=== PATIENT | male | born 2005 | race Caucasian/White ===

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

== ENCOUNTER 2023-03-04 09:51 | Emergency (ER) | payer MEDICAID, SELFPAY ==
[2023-03-04 09:51] VITALS: BP 123/77; PULSE 102; RESP 16; TEMP 36.3; O2SAT 99; BMI 22.8
--- NOTE | 2023-03-04 10:48 | EX.ED.GENINJ ---
HPI History of Present Illness Chief Complaint: Laceration Informant: patient Onset/Context/Timing Onset: Today Narrative Narrative: Patient presents with a laceration to his right hand. He is left-hand dominant. He was using his knife and slipped cutting his right hand. He believes his last tetanus shot was 2 years ago. PFSH PFSH no medical history Allergy/AdvReac Type Severity Reaction Status Date / Time No Known Allergies Allergy Verified 07/28/22 13:23 Social History Smoking Status: Never smoker ROS ROS ED Constitutional Constitutional ED: Denies chills or fever(s) Eyes Eyes: Denies discharge from eye(s) ENT ENT ED: Denies discharge from eye(s), rhinorrhea or sore throat Cardiovascular Cardiovascular: Denies chest pain Respiratory/Chest Respiratory/Chest: Denies cough or dyspnea Gastrointestinal Gastrointestinal: Denies abdominal pain Musculoskeletal Musculoskeletal: Reports extremity pain; Denies back pain Integumentary Reports other Details: Right hand laceration ; Denies Abrasions or rash Neurologic Neurologic: Denies headache(s), paresthesias or weakness Allergic/Immunologic Allergic/Immunologic ED: Denies lip swelling or urticaria EXAM Physical Exam Const Vital Signs: 03/04/23 09:51 Temperature 97.4 F L Temperature Source Temporal Pulse Rate 102 H Respiratory Rate 16 Blood Pressure 123/77 H Blood Pressure Mean 92 Pulse Ox 99 Oxygen Delivery Method Room Air Positive well nourished and well developed General Appearance ED: well developed Eyes EOMs intact bilaterally Chest Wall inspection of chest normal and palpation of chest normal Resp normal respiratory effort and clear to auscultation bilaterally Cardio regular rhythm Rate: regular rate GI non-tender Palpation: soft Extremity Extremity Narrative: 1.5 cm laceration over the second MCP joint on the extensor surface. Bleeding well-controlled. Full range of motion of the digit without difficulty. Normal sensation and cap refill. Neuro oriented x3 and moves all extremities Skin Skin Narrative: Right hand laceration as noted above. PROC Procedures Lacerations Right hand laceration: Length: 0.59 in Shape: Linear Prep: Suzy-Kristin Laceration repair: Irrigated, Lidocaine and Local Number of Sutures/[place]: 3 Suture Information: Ethilon, Simple and 5-0 Comment: 1.5 cm laceration on the extensor surface of the second MCP joint of the right hand. 1 mL lidocaine infused locally for anesthesia. Wound cleansed and irrigated. 3 simple interrupted sutures of 5-0 nylon placed with good approximation. MDM MDM MDM Narrative Medical decision making narrative: Right hand laceration repaired as noted in procedure note. Antibiotic ointment and dressing applied. Patient to have sutures removed in 7 to 10 days. Discharge Plan Triage Chief Complaint: Laceration ED Provider: Caron Monsivais Dx/Rx/DC Orders Clinical Impression: Laceration of hand, right Instructions: ED Laceration, Hand: All Closures Primary Care Provider: Care Physician,No Primary Referrals: Jenny Fields MD [Med Staff - Information Technology Director] - 10 Day for suture removal Care Physician,No Primary [Primary Care Provider] - Activity Restrictions/Additional Instructions: Please keep the wound clean, dry, covered. You may return to work. Please have your stitches removed in 7 to 10 days. Disposition Disposition: Home, Self Care
[2023-03-04] MEDS: Lidocaine 1% (20 ml mdv) 20 ML Vial INFILT (11:20)
--- OUTSIDE RECORDS SUMMARY | 2023-03-04 11:32 | XMS RPT_ITS | CCD ---
Author Name Unknown Address [address] [place] [id number] Organization [facility] Results Test Name Value Interpretation Reference Range Facil ity Progress note 05-03-2021 Note Date & Type Note Facility 05-03-2021 Note HNO ID: [id number] Author: RT Antony(R) Service: ? Author Type: Dress Fitter Type: Progress Notes Filed: 05/03/2021 6:42 PM Note Text: Radiology Service Progress Note PATIENT NAME: Davey Wong DATE OF SERVICE: May 03, 2021 TIME: 6:33 PM PATIENT IDENTITY VERIFICATION COMPLETED USING TWO (2) IDENTIFIERS: Name and Date of confirmed by patient verbally. FALL SCREENING: Has the patient had 2 falls in the last year or 1 fall with injury or currently using an Ambulatory Assistive Device (Walker, Cane, Wheelchair, Crutches, etc.)? No PATIENT GENDER DATA: Male PATIENT RELEVANT IMPLANT DATA REVIEWED: Yes RADIOLOGY DEPARTMENT: General X-ray: Exam(s) Completed: Lower Extremity X-Ray(s): Ankle, Right PERIPHERAL IV DATA: Not applicable SIGNED BY: RT Antony(R) May 03, 2021 6:33 PM [facility] Progress note 05-03-2021 Note Date & Type Note Facility 05-03-2021 Note HNO ID: [id number] Author: Alyssa Villanueva APRN.EDGAR Service: ? Author Type: Nurse Practitioner Type: Progress Notes Filed: 05/03/2021 7:57 PM Note Text: This note was created using NoteWriter. Subjective Davey Wong is a 16 year old male who presents with persistent right ankle pain and swelling after twisting his ankle during a wrestling match 2 weeks ago. Additionally he reports some numbness on the dorsal aspect of the right foot, with radiculopathy upon plantar flexion. Rest and tylenol provide mild relief of symptoms. Review of Systems Constitutional: Negative for fatigue and fever. Musculoskeletal: Positive for gait problem (limping) and joint swelling. Skin: Negative for color change. All other systems reviewed and are negative. Objective BP 124/68 Pulse 90 Temp 36.9 ?C (98.5 ?F) Resp 16 Wt 56.7 kg (125 lb) SpO2 99% PAST MEDICAL HISTORY Diagnosis Date - ADD (attention deficit disorder) without hyperactivity 12/12/2012 - Depression 01/08/2014 - Recurrent otitis media prior to age 1 resolved with tubes PAST SURGICAL HISTORY Procedure Laterality Date - CIRCUMCISION,OTHR, - MYRINGOTOMY W TUBE,BILATERAL(2) age 1 ALLERGIES Ibuprofen MEDICATIONS No prescriptions on file. FAMILY HISTORY Problem Relation Age of Onset - other (schizophrenia) Mother per step-mother's report - other (lupus) Mother per step-mother's report - other (bipolar) Mother per step-mother's report - other (migraines) Father occipital neuralgia Social History Tobacco Use - Smoking status: Passive Smoke Exposure - Never Smoker - Smokeless tobacco: Never Used - Tobacco comment: father smokes outside Substance Use Topics - Alcohol use: Not on file - Drug use: Not on file Physical Exam Vitals reviewed. Constitutional: General: He is not in acute distress. HENT: Head: Normocephalic and atraumatic. Musculoskeletal: General: Swelling, tenderness and signs of injury present. No deformity. Right ankle: Swelling present. No ecchymosis. Tenderness present over the lateral malleolus. Decreased range of motion. Normal pulse. Right Achilles Tendon: Tenderness present. Left ankle: Normal. Left Achilles Tendon: Normal. Right foot: Normal. Left foot: Normal. Comments: Effusion noted on right lateral malleolus Skin: General: Skin is warm and dry. Neurological: General: No focal deficit present. Mental Status: He is alert and oriented to person, place, and time. Mental status is at baseline. Psychiatric: Mood and Affect: Mood normal. Behavior: Behavior normal. Assessment and Plan ASSESSMENT/PLAN: 1. Ankle injury, right, initial encounter - ICD9: 959.7, ICD10: S99.911A - XR ANKLE GENERAL 3V AP/LAT/OBL RIGHT - Radiologist IMPRESSION: 1. Soft tissue swelling laterally. No fracture. Normal bone alignment. 2. Possible joint effusion in the anterior ankle joint. ? Steel Erecting Pusher: GABY Transcribe Date/Time: May 03 2021 7:04P ? Dictated by : MARIAM SILVA MD -aircast splint applied to right ankle. - RICE therapy as directed. - Follow-up with your PCP in 3-5 days if symptoms have not improved or sooner if symptoms worsen - Discussed red flags and need for immediate medical evaluation if any occur. - Discussed supportive care treatment with fluids, rest and analgesia. - Discussed expected course of illness Alyssa Villanueva APRN.PROPERTY INSURANCE AGENT [facility] Progress note 12-29-2020 Note Date & Type Note Facility 12-29-2020 Note HNO ID: [id number] Author: Alyssa Villanueva APRN.PROPERTY INSURANCE AGENT Service: ? Author Type: Nurse Practitioner Type: Progress Notes Filed: 12/29/2020 6:51 PM Note Text: Subjective HPI Davey Wong is a 15 year old male who presents for sports physical. See scanned [employer] physical form. Review of Systems Constitutional: Negative. HENT: Negative. Eyes: Negative. Respiratory: Negative. Cardiovascular: Negative. Gastrointestinal: Negative. Genitourinary: Negative. Musculoskeletal: Negative. Skin: Negative. Neurological: Negative. Endo/Heme/Allergies: Negative. Psychiatric/Behavioral: Negative. All other systems reviewed and are negative. BP 102/70 Pulse 96 Temp 36.4 ?C (97.5 ?F) (Left Tympanic) Resp 16 Ht 165.1 cm (5' 5 ) Wt 53.3 kg (117 lb 9.6 oz) SpO2 98% BMI 19.57 kg/m? PAST MEDICAL HISTORY Diagnosis Date - ADD (attention deficit disorder) without hyperactivity 12/12/2012 - Depression 01/08/2014 - Recurrent otitis media prior to age 1 resolved with tubes PAST SURGICAL HISTORY Procedure Laterality Date - CIRCUMCISION,OTHR, - MYRINGOTOMY W TUBE,BILATERAL(2) age 1 ALLERGIES Ibuprofen MEDICATIONS No prescriptions on file. FAMILY HISTORY Problem Relation Age of Onset - other (schizophrenia) Mother per step-mother's report - other (lupus) Mother per step-mother's report - other (bipolar) Mother per step-mother's report - other (migraines) Father occipital neuralgia Social History Tobacco Use - Smoking status: Passive Smoke Exposure - Never Smoker - Smokeless tobacco: Never Used - Tobacco comment: father smokes outside Substance Use Topics - Alcohol use: Not on file - Drug use: Not on file Objective Physical Exam- See scanned [employer] physical form. ASSESSMENT/PLAN: 1. Sports physical - ICD9: V70.3, ICD10: Z02.5 -cleared for all sports without restriction. Alyssa Villanueva APRN.[facility] Progress note 12-08-2020 Note Date & Type Note Facility 12-08-2020 Note HNO ID: [id number] Author: Elizabeth Kaplan MD Service: ? Author Type: Physician Type: Progress Notes Filed: 12/09/2020 4:43 PM Note Text: This is a consultation requested by Dr. Tran for an allergy and immunology evaluation. My final recommendations will be communicated back to the requesting healthcare provider(s) by way of shared medical record or via [place] mail. Davey Wong is a 15 year old male who presents for further evaluation of facial swelling. In late October, he developed significant swelling of the right side of his face. Swelling extended from his lower eyelid to his upper lip. Swelling was painful. Denies pruritus. Denies overlying erythema or skin rash. Denies swelling of the tongue or throat. He had taken ibuprofen for a headache a few hours prior to the onset of symptoms. No other identified triggers of his symptoms. He then took Aleve a couple times after the swelling had developed. He has subsequently avoided use of aspirin/NSAID medications. He was treated with oral corticosteroids and Zyrtec with gradual resolution of symptoms over 1.5 to 2 weeks. Denies a history of urticaria. Denies concurrent symptoms including fevers, chills, night sweats and unintentional weight loss. There is no family history of angioedema or thyroid disease. His biological mother may have a history of lupus. Clemons's palsy was considered in the differential diagnosis when swelling was present. Patient was able to close his eyes without difficulty when symptoms were present. He reports it was difficult to smile due to swelling of the right side of the upper lip. REVIEW OF SYSTEMS: Denies significant nasal and ocular symptoms. SINUSITIS: The patient does not suffer from frequent sinopulmonary infections. ASTHMA: The patient has no history of asthma. ECZEMA: The patient has no history of eczema. URTICARIA:The patient does not have a history of urticaria GERD: The patient does not have a history of GERD. INSECT STING: The patient does not have a history of systemic reaction to insect sting. FOOD ALLERGY:The patient denies history of food allergy. LATEX: The patient does not have a history of adverse reaction to latex. All other review of systems negative except for those listed above. PAST MEDICAL HISTORY Diagnosis Date - ADD (attention deficit disorder) without hyperactivity 12/12/2012 - Depression 01/08/2014 - Recurrent otitis media prior to age 1 resolved with tubes MEDICATIONS: No prescriptions on file. ALLERGIES: Allergies As of Date: 12/08/2020 (No Known Allergies) Fully Assessed 12/08/2020 PAST SURGICAL HISTORY Procedure Laterality Date - CIRCUMCISION,OTHR, - MYRINGOTOMY W TUBE,BILATERAL(2) age 1 FAMILY HISTORY: Allergic rhinitis:yes: dad. Asthma: no. Eczema: no. Cystic fibrosis: no. Immunodeficiency: no. SOCIAL HISTORY: Employer And Job Title: None on file Years Of Education Completed: Not specified Marital Status: Single Social History Tobacco Use Smoking status: Passive Smoke Exposure - Never Smoker Smokeless tobacco: Never Used Tobacco comment: father smokes outside [facility] ENVIRONMENTAL HISTORY: Lives in a house Age of home: 30 years Heating: gas , electric Woodburning fireplace in the home: no Air conditioning: Central air Basement: Dry basement [place]: Hardwood floor Dust mite controls: Dust mite controls are not in place. Pets in the home: 1 cats Outdoor animals: 1 dogs Tobacco smoke: No exposure in the home. Physical Exam: GENERAL APPEARANCE:Well appearing, alert, in no acute distress, well-hydrated, well nourished. HEENT: NCAT. EYES: conjunctiva and sclera normal. EARS: External ears normal. Canals clear. TM's normal. NOSE/SINUS: Nares normal. Septum midline. Mucosa normal. No drainage or sinus tenderness. THROAT: no erythema NECK:neck supple, no adenopathy HEART:RRR with normal S1 and S2 ,no murmurs, no gallops, no rubs LUNGS: clear to auscultation bilaterally, no wheezes, rales or rhonchi ABDOMEN:soft, nontender, nondistended, without organomegaly or palpable masses EXTREMITIES:Extremities normal, No deformities, No skin discoloration and No edema SKIN: Skin color, texture, turgor normal. No rashes or lesions. ASSESSMENT/PLAN: 1.) History of right-sided facial swelling, possibly angioedema, although angioedema typically resolves in 48 to 72 hours rather than 1.5 to 2 weeks. Recommend that he continue to avoid use of ibuprofen and other NSAID medications as ibuprofen was a possible trigger of his symptoms. He may take regular strength Tylenol as needed. He may return to the office for a graded in office challenge to ibuprofen. Laboratory evaluation including CBC with differential and platelets, ESR, TSH, LFTs and C4 will be obtained to screen for underlying etiology of his symptoms. If swelling recurs, he was instructed to take Zyrtec 10 mg twice d (more content not included)... [facility] Progress note 11-15-2020 Note Date & Type Note Facility 11-15-2020 Note HNO ID: [id number] Author: Deepak Tran MD Service: ? Author Type: Physician Type: Progress Notes Filed: 11/15/2020 8:04 PM Note Text: The patient was seen for the issues discussed below. Problem list and history reviewed. Allergies reviewed. Medications reviewed. Immunizations reviewed. HISTORY: see history section below PHYSICAL EXAM: GENERAL: alert, well appearing, in no distress. Visualization of the face reveals slight drooping of the right side of the mouth as well as smoothness over the right facial cheek. Slight edema over the right lower eyelid. LEFT EYE: no drainage noted, no conjunctival injection noted; RIGHT EYE: no drainage noted, no conjunctival injection noted; NO ADDITIONAL EYE FINDINGS LEFT EAR: pinna normal, auditory canal normal, tympanic membrane clear, no effusion noted, RIGHT EAR: pinna normal, auditory canal normal, tympanic membrane clear, no effusion noted NOSE/SINUSES: nares normal, mucosa normal, no drainage noted OROPHARYNX: lips without lesions noted, gums/mucosa normal, oropharynx without erythema or exudates NECK/ADENOPATHY: neck supple, no adenopathy noted CHEST/LUNGS: lungs clear to auscultation GENERAL RECOMMENDATIONS: - Issues discussed in detail. - Symptom relief measures as needed. - Prescriptions, if ordered, are listed below. - Labs and/or X-rays, if ordered or obtained, are listed below. If the final results are not available at the conclusion of this visit, then additional recommendations may be made based on the final results. Note that all x-rays are reviewed by a radiologist before being considered final. - EKG, if ordered or obtained, is reviewed by a professional benefits sales consultant before being considered final. Additional recommendations may be made based on the final results. - Return to clinic should current symptoms (if present) worsen, other problems develop, or as needed. ADDITIONAL AND DICTATED PORTION: ADDITIONAL HISTORY The following Nursing History was reviewed with the family: Patient presents with: Follow Up: Follow facial swelling. The patient has had swelling of the right side of the face for 4 to 5 days. Significantly worse in the mornings. Mostly gone by evening. Drooping of the right facial cheek also has been present. The patient was seen in urgent care on 11/11 and prescribed Zyrtec and prednisolone. He has also now developed a small amount of pain along the right nostril. The patient had photographs that I reviewed. They were from just awakening in the morning. Significant edema present both to the lower eyelid, cheek, and lips of the right side of the face. No history of insect stings. No injuries. No fever. Right eye is watery when the swelling is present. No visual changes. No conjunctival injection. No ear, nose, throat complaints. No lymphadenopathy. No bleeding or bruising. No cough, wheezing, shortness of breath. No vomiting, diarrhea, abdominal pain. No rash. No history of recent illnesses. ACTIVE PROBLEM LIST Add (Attention Deficit Disorder) Without Hyperactivity Depression Parasomnia Aniceto (Generalized Anxiety Disorder) Nightmares Associated With Chronic Post-Traumatic Stress Disorder PAST MEDICAL HISTORY Diagnosis Date - ADD (attention deficit disorder) without hyperactivity 12/12/2012 - Depression 01/08/2014 - Recurrent otitis media prior to age 1 resolved with tubes PAST SURGICAL HISTORY Procedure Laterality Date - CIRCUMCISION,OTHR, - MYRINGOTOMY W TUBE,BILATERAL(2) age 1 ADDITIONAL EXAM / OTHER INFORMATION none ADDITIONAL IMPRESSION / PLAN On the exam in the office this evening, 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 On the photographs from the mornings, the facial swelling is dramatic and consistent with angioedema. I am not aware of Clemons's palsy giving facial edema. The patient and I discussed it is possible that if he lays with the right side (affected side) down, then possibly that side of the face becomes swollen due to the lack of muscle innervation to keep fluid from building up in that location. However, that is a hypothetical explanation that I have not seen in practice with known Clemons's palsy patients. Therefore we will refer the patient to allergy for the possibility of angioedema, and I have extended the steroid course for the possibility of Clemons's palsy. Recommended telephone follow-up from the patient/family in 1 to 2 weeks. I spent a total of 40-54 minutes on the date of service. This included preparing to see the patient; [id number] patient care; obtaining and/or reviewing separately obtained history; performing a medically appropriate examination; counseling and educating the patient/family/caregiver; and completing clinical documentation. As applicable, this also included orderin (more content not included)... [facility] Progress note 11-11-2020 Note Date & Type Note Facility 11-11-2020 Note HNO ID: [id number] Author: Leonor Springer PA-C Service: ? Author Type: Physician Cafe Server Type: Progress Notes Filed: 11/12/2020 4:03 PM Note Text: Subjective HPI HPI Davey Wong is a 15 year old male who presents today with father for evaluation of right-sided facial swelling that started x2-3 days ago, that seemed to come on spontaneously. No itching or rash overlying the area. Denies ever having had this issue before. Denies any injury to the area. No new medications, new topical creams, or any other new exposures. Denies any significant rash or itching in area, as well as any swelling of tongue/lips/throat, SOB/wheezing, or any other progressive symptoms suggestive of more severe anaphylactic response. He does note having headaches but states that is nothing new, just slightly more prevalent given swelling in affected area. Pt has tried benadryl, IBU, and advil, without much relief in symptoms. BP 118/78 Pulse 100 Temp 36.9 ?C (98.5 ?F) Resp 18 Wt 53.1 kg (117 lb) SpO2 99% ALLERGIES No Known Allergies ACTIVE PROBLEM LIST Add (Attention Deficit Disorder) Without Hyperactivity Depression Parasomnia Aniceto (Generalized Anxiety Disorder) Nightmares Associated With Chronic Post-Traumatic Stress Disorder Family History Problem Relation Age of Onset - other (schizophrenia) Mother per step-mother's report - other (lupus) Mother per step-mother's report - other (bipolar) Mother per step-mother's report - other (migraines) Father occipital neuralgia Social History Tobacco Use - Smoking status: Passive Smoke Exposure - Never Smoker - Smokeless tobacco: Never Used - Tobacco comment: father smokes outside Substance Use Topics - Alcohol use: Not on file - Drug use: Not on file Review of Systems Constitutional: Negative for chills and fever. Respiratory: Negative for cough, shortness of breath, wheezing and stridor. Skin: Negative for itching and rash. Objective Physical Exam Vitals and nursing note reviewed. HENT: Head: Normocephalic and atraumatic. Comments: Moderate edema noted in R nasolabial fold extending over to midcheek. No overlying erythema, rash, or any other significant findings. Notable allergic shiner on ipsilateral side (R) Right Ear: Tympanic membrane, ear canal and external ear normal. No middle ear effusion. Tympanic membrane is not injected, perforated, erythematous, retracted or bulging. Left Ear: Tympanic membrane, ear canal and external ear normal. No middle ear effusion. Tympanic membrane is not injected, perforated, erythematous, retracted or bulging. Nose: No mucosal edema or rhinorrhea. Right Sinus: No maxillary sinus tenderness or frontal sinus tenderness. Left Sinus: No maxillary sinus tenderness or frontal sinus tenderness. Mouth/Throat: Pharynx: Uvula midline. No oropharyngeal exudate or posterior oropharyngeal erythema. Tonsils: No tonsillar abscesses. Cardiovascular: Rate and Rhythm: Normal rate and regular rhythm. Heart sounds: Normal heart sounds. Pulmonary: Effort: Pulmonary effort is normal. Breath sounds: Normal breath sounds. No decreased breath sounds, wheezing, rhonchi or rales. Musculoskeletal: Cervical back: Normal range of motion. Lymphadenopathy: Head: Right side of head: No submental, submandibular, tonsillar, preauricular, posterior auricular or occipital adenopathy. Left side of head: No submental, submandibular, tonsillar, preauricular, posterior auricular or occipital adenopathy. Cervical: No cervical adenopathy. Right cervical: No superficial or posterior cervical adenopathy. Left cervical: No superficial or posterior cervical adenopathy. Skin: General: Skin is warm and dry. Neurological: Mental Status: He is alert and oriented to person, place, and time. Psychiatric: Mood and Affect: Affect normal. ASSESSMENT/PLAN: 1. Facial swelling - ICD9: 784.2, ICD10: R22.0 Unclear etiology, suspect allergic versus irritant/hypersensitivity response D/t persistence of symptoms with benadryl, will go ahead and start on oral steroid (pt prefers oral solution), in addition to taking a daily antihistamine. Discussed medication indications, proper use, and potential adverse effects. All questions and concerns addressed to patient satisfaction. - CETIRIZINE 10 MG TABLET - PREDNISOLONE SODIUM PHOSPHATE 15 MG/5 ML (3 MG/ML) ORAL SOLUTION Pt advised to see hockey instructor if symptoms persist or progress. Reviewed red flags with patient and parent and when to seek care sooner. The patient's parent indicates understanding of these issues and agrees with the plan. Leonor Springer PA-C [facility] Progress note 06-30-2020 Note Date & Type Note Facility 06-30-2020 Note HNO ID: [id number] Author: Alyssa Villanueva APRN.PROPERTY INSURANCE AGENT Service: ? Author Type: Nurse Practitioner Type: Progress Notes Filed: 06/30/2020 5:32 PM Note Text: Subjective HPI Davey Wong is a 15 year old male who presents with a recent exposure to COVID. He was in the same room yesterday with a person who tested positive. He denies any symptoms. Review of Systems Constitutional: Negative for chills, fever and malaise/fatigue. HENT: Negative for congestion and sore throat. Respiratory: Negative for cough. Cardiovascular: Negative. Gastrointestinal: Negative for diarrhea, nausea and vomiting. Musculoskeletal: Negative for myalgias. Skin: Negative. Neurological: Negative for headaches. BP 112/82 Pulse 82 Temp 36.7 ?C (98 ?F) (Left Tympanic) Resp 16 Wt 53.2 kg (117 lb 3.2 oz) SpO2 98% PAST MEDICAL HISTORY Diagnosis Date - ADD (attention deficit disorder) without hyperactivity 12/12/2012 - Depression 01/08/2014 - Recurrent otitis media prior to age 1 resolved with tubes PAST SURGICAL HISTORY Procedure Laterality Date - CIRCUMCISION,OTHR, - MYRINGOTOMY W TUBE,BILATERAL(2) age 1 ALLERGIES Patient has no known allergies. MEDICATIONS No prescriptions on file. FAMILY HISTORY Problem Relation Age of Onset - other (schizophrenia) Mother per step-mother's report - other (lupus) Mother per step-mother's report - other (bipolar) Mother per step-mother's report - other (migraines) Father occipital neuralgia Social History Tobacco Use - Smoking status: Passive Smoke Exposure - Never Smoker - Smokeless tobacco: Never Used - Tobacco comment: father smokes outside Substance Use Topics - Alcohol use: Not on file - Drug use: Not on file Objective Physical Exam Vitals reviewed. Constitutional: Appearance: Normal appearance. Cardiovascular: Rate and Rhythm: Normal rate. Heart sounds: Normal heart sounds. Pulmonary: Effort: Pulmonary effort is normal. Breath sounds: Normal breath sounds. Skin: General: Skin is warm and dry. Neurological: Mental Status: He is alert. ASSESSMENT/PLAN: 1. Close exposure to COVID-19 virus - ICD9: V01.79, ICD10: Z20.822 - ASYMPTOMATIC ELECTIVE COVID-19 - information regarding quarantine discussed with patient. - Follow-up with your PCP in 3-5 days if symptoms have not improved or sooner if symptoms worsen - Discussed red flags and need for immediate medical evaluation if any occur. - Discussed supportive care treatment with fluids, rest and analgesia. - Discussed expected course of illness Alyssa Villanueva, KOURTNEY.EDGAR [facility] Summary Purpose Family History No Family History Records FoundNo Family History Records Found Advance Directives No Advanced Directives Records FoundNo Advanced Directives Records Found Additional Source Comments (unrecognized sect ion and content) No Status Records FoundNo Status Records Found INFORMATION SOURCE (unrecogn ized section and content) DATE CREATED AUTHOR AUTHOR'S ORGANIZ ATION 05/16/2021 [facility] FOR RECORDS PERTAINING TO PATIENTS WHO ARE OR HAVE BEEN ENROLLED IN A CHEMICAL DEPENDENCY/SUBSTANCEABUSE PROGRAM, SOME INFORMATION MAY BE OMITTED. This clinical summary was aggregated from multiple sources. Caution should be exercised in using it in the provision of clinical care. This summary normalizes information from multiple sources, and as a consequence, information in this document may materially change the coding, format and clinical context of patient data. In addition, data may be omitted in some cases. CLINICAL DECISIONS SHOULD BE BASED ON THE PRIMARY CLINICAL RECORDS. [facility] [employer] [facility]. provides no warranty or guarantee of the accuracy or completeness of information in this document.
== END 2023-03-04 11:23 | disposition home or self-care (01) ==
LOC: ED 11:01
PROVIDERS: Emergency Provider Emergency Medicine; Visit Provider Emergency Medicine
DX: S61.411A Laceration without foreign body of right hand, initial encounter (principal); W26.0XXA Contact with knife, initial encounter
CPT/HCPCS: 12001; 99283

== ENCOUNTER 2023-10-11 05:22 | Emergency (ER) | payer SELFPAY ==
[2023-10-11 05:23] VITALS: BP 126/79; PULSE 76; RESP 16; TEMP 36.4; O2SAT 97; BMI 20.3
--- NOTE | 2023-10-11 05:57 | EX.ED.DYSGE1 ---
HPI History of Present Illness Chief Complaint: Nausea/Vomiting Informant: patient and spouse/S.O. Narrative Narrative: 18-year-old male presenting to the emergency room with left flank pain and vomiting. Patient states that around midnight last night he had to get up pinching pain in the left low back. He states that he has had 3 distinct episodes of vomiting. Pain seems to come and then back off. He notes some urinary frequency yesterday. He states his father had kidney stones. He denies any change in bowel habits. No fevers. Significant other is not ill. PFSH PFSH Medical History no medical history Home Medications ?Medication ?Instructions ?Recorded ?Last Taken ?Type NK 10/11/23 Unknown History Allergy/AdvReac Type Severity Reaction Status Date / Time No Known Allergies Allergy Verified 10/11/23 05:23 Social History Smoking Status: Current every day smoker tobacco type: e-cigarettes ROS ROS ED Constitutional Constitutional ED: Denies chills, fever(s) or weight loss Eyes Eyes: Denies change in vision or diplopia ENT ENT ED: Denies ear pain, rhinorrhea or sore throat Cardiovascular Cardiovascular: Denies chest pain, orthopnea, palpitations or racing heartbeat Respiratory/Chest Respiratory/Chest: Denies cough, dyspnea or orthopnea Gastrointestinal Gastrointestinal: Reports abdominal pain; Denies diarrhea, nausea or vomiting Genitourinary Genitourinary ED: Reports urinary frequency; Denies dysuria or hematuria Musculoskeletal Musculoskeletal: Reports back pain; Denies arthralgias or myalgias Integumentary Denies abscess or rash Neurologic Neurologic: Denies headache(s) or weakness Psychiatric Psychiatric: Denies anxiety, depression, suicidal ideation or suicidal thoughts Endocrine Endocrinology: Denies polydipsia, polyphagia or polyuria Allergic/Immunologic Allergic/Immunologic ED: Denies mouth swelling, tongue swelling or urticaria EXAM Physical Exam Const Vital Signs: 10/11/23 05:23 Temperature 97.6 F L Temperature Source Temporal Pulse Rate 76 Respiratory Rate 16 Blood Pressure 126/79 H Blood Pressure Mean 94 Pulse Ox 97 Positive well nourished and well developed General Appearance ED: well developed HEENT Reports normocephalic, head/scalp atraumatic and moist mucous membranes Eyes PERRL and EOMs intact bilaterally Neck no lymphadenopathy, supple and no JVD Resp normal respiratory effort and clear to auscultation bilaterally Cardio regular rate, regular rhythm and no murmurs GI normal to inspection, nondistended, normoactive bowel sounds and non-tender Palpation: soft Back/Spine no CVA tenderness and normal ROM Extremity normal to inspection General Extremety ED: Negative for edema General Extremity: Negative for edema Neuro oriented x3 and CN's II-XII intact bilaterally Sensorium / Orientation: alert Motor Exam: strength 5/5 throughout Psych mental status grossly normal Mood & Affect: Negative for depressed or tearful Skin no rashes or lesions noted and no wounds MDM MDM MDM Narrative Medical decision making narrative: Differential diagnosis includes gastroenteritis ureterolithiasis small bowel obstruction pancreatitis biliary colic UTI. White count slightly elevated at 13.6 platelet count of 252. Creatinine 1.51 with a BUN of 21 glucose 125. Patient received Toradol Zofran and IV fluids. CT of the abdomen pelvis was obtained and is currently pending. Urinalysis LFTs and lipase are also pending. Care of the patient will be turned over the oncoming physician for check of labs and CT and final disposition. History & Record Review Discussion w/independent historian: Patient and Significant other Lab Data Attestation: I reviewed the patient's lab results. Labs: Laboratory Results - last 24 hr 10/11/23 06:23 WBC 13.6 H RBC 4.66 Hgb 13.6 Hct 41.5 MCV 89.1 MCH 29.2 MCHC 32.8 RDW Std Deviation 41.9 RDW Coeff of Hannah 12.9 Plt Count 252 MPV 9.3 Immature Gran % (Auto) 0.400 Neut % (Auto) 77.6 H Lymph % (Auto) 9.2 L [place] % (Auto) 8.6 Eos % (Auto) 3.6 Baso % (Auto) 0.6 Absolute Neuts (auto) 10.5 H Absolute Lymphs (auto) 1.25 Nucleated RBC % 0 Sodium 141 Potassium 4.1 Chloride 107 Carbon Dioxide 29.0 Anion Gap 5 BUN 21 H Creatinine 1.51 H Estim Creat Clear Calc 61.23 Est GFR (MDRD) Af Amer 76 Est GFR (MDRD) Non-Af 63 BUN/Creatinine Ratio 13.9 Glucose 125 H Calcium 9.1 Discharge Plan Triage Chief Complaint: Nausea/Vomiting ED Provider: Kun Delgadillo Dx/Rx/DC Orders Prescriptions: No Action NK Primary Care Provider: Care Physician,No Primary Referrals: Care Physician,No Primary [Primary Care Provider] - Print Language: Icelandic
[2023-10-11 06:28] LABS: Absolute Lymphocyte Count 1.25 X10^3/uL (0.83-4.51); Absolute Neutrophil Count 10.5 X10^3/uL (2.0-7.7); Basophil# 0.08 X10^3/uL; Basophil% 0.6 % (0-1); Eosinophil# 0.49 X10^3/uL; Eosinophils% 3.6 % (0-5); Hematocrit 41.5 % (40-54); Hemoglobin 13.6 g/dL (13.0-16.5); Lymphocyte # 1.25 X10^3/ul (0.83-4.51); Lymphocyte % 9.2 % (19-41); Mean Corp Hgb Conc 32.8 g/dL (32-36); Mean Corpuscular Hgb 29.2 pg (27.0-32.0); Mean Corpuscular Volume 89.1 fL (80-94); Mean Platelet Vol. 9.3 fl (6.2-12.0); Monocyte# 1.17 X10^3/uL; Monocyte% 8.6 % (0-10); NRBC Flagged by Analyzer 0 % (0-5); Neutrophil # 10.51 X10^3/uL (2.7-7.7); Neutrophil % 77.6 % (47-70); Platelet Count 252 K/mm3 (150-450); RBC Distribution Width CV 12.9 % (11.6-14.6); RBC Distribution Width SD 41.9 fl (35.1-43.9); Red Blood Count 4.66 M/mm3 (4.6-6.2); White Blood Count 13.6 K/mm3 (4.4-11.0)
[2023-10-11] MEDS: 0.9% Normal Saline (1000mL) 1,000 ML 250 ML IV (06:34)
[2023-10-11] MEDS: Ondansetron 4 MG/2 ML Vial IV (06:35)
[2023-10-11] MEDS: Ketorolac 30 MG/ML Syringe IV (06:35)
[2023-10-11 06:42] LABS: Anion Gap 5 (5-15); BUN 21 mg/dL (7-18); BUN/Creat Ratio 13.9 RATIO (10-20); Calcium,Total 9.1 mg/dL (8.5-10.1); Chloride 107 mmol/L (98-107); Creatinine, Serum 1.51 mg/dL (0.70-1.30); EST Glomerular Filtration Rate 63 mL/min (>60); Est Glom Filt Rate - Afr Amer 76 mL/min (>60); Estimated Creatinine Clearance 61.23 ml/min; Glucose 125 mg/dL (74-106); Potassium 4.1 mmol/L (3.5-5.1); Sodium Level 141 mmol/L (136-145)
--- NOTE | 2023-10-11 07:17 | CT_ITS ---
STUDY: CT ABDOMEN AND PELVIS WITHOUT CONTRAST REASON FOR EXAM: Male, 18 years old. Flank pain RADIATION DOSAGE (If Supplied By Facility): CTDIvol = ( 5.27 ) mGy, DLP = ( 244.45 ) mGycm TECHNIQUE: Transaxial images were obtained from the dome of the diaphragm to the symphysis pubis without oral contrast, and without intravenous contrast. Sagittal and coronal images were reconstructed. CT scan performed according to ALARA principles. Automated exposure control used during exam. COMPARISON: No relevant prior comparison study available FINDINGS: Evaluation of the abdominal viscera is limited in the absence of intravenous contrast. LOWER THORAX: The visualized lung bases are clear. The visualized portions of the heart and pericardium are within normal limits. GALLBLADDER / BILE DUCTS: There are no calcified gallstones present. The common bile duct is normal in caliber. There are no calcified ductal stones. LIVER: The liver demonstrates an unremarkable unenhanced appearance. SPLEEN: The spleen is normal in size. PANCREAS: The pancreas demonstrates an unremarkable unenhanced appearance. ADRENAL GLANDS: The adrenal glands are within normal limits. KIDNEYS / BLADDER: There are no renal or ureteral stones. There is no hydronephrosis. There are no focal renal lesions identified on this noncontrast exam. The urinary bladder is partially distended and appears grossly unremarkable. STOMACH / BOWEL: Normal visualized stomach. There is no bowel obstruction or inflammation. The appendix is visualized and appears normal. PERITONEUM / RETROPERITONEUM: There is no abdominal or pelvic free air, free fluid or fluid collection. There is no abnormal soft tissue mass identified. There is no abdominal or pelvic lymphadenopathy. VESSELS: The aorta is normal in caliber. The IVC is unremarkable. BONES: There are no destructive osseous lesions. SOFT TISSUES: The visualized soft tissues are within normal limits. CT/Abdomen/Pelvis without Cont IMPRESSION: No acute abdominal or pelvic pathology. Electronically Signed: Alvin Rodrigues MD at 7:50 EDT ,
[2023-10-11 07:23] VITALS: BP 118/97; PULSE 80; RESP 16; O2SAT 97
[2023-10-11 07:34] LABS: Bacteria 0 SEEN /hpf (None Seen); Mucous, Urine 0 SEEN /hpf (<or=2+); Red Blood Cells-Urine 0 SEEN /hpf (0-5); Squamous Epithelial Cells - UA 0 SEEN /hpf (0-5); White Blood Cells 0 SEEN /hpf (0-5)
[2023-10-11 07:43] LABS: Color, Urine Yellow (Yellow); Glucose, Dipstick Normal (Normal); Ketone-Dipstick Negative (Negative); Leukocyte Esterase-Dipstick Negative /ul (Negative); Nitrite-Dipstick Negative (Negative); Occult Blood-Urine Negative /ul (Negative); Protein-Dipstick 15 mg/dl (Negative); Urine Bilirubin Dipstick Negative (Negative); Urine Clarity Clear (Clear); Urine Urobilinogen Normal (Normal)
[2023-10-11 08:21] LABS: AST(SGOT) 30 U/L (15-37); Alanine Aminotransfer ALT/SGPT 33 U/L (16-61); Alkaline Phosphatase 57 U/L (45-117); Bilirubin, Direct 0.27 mg/dL (0.00-0.30); Globulin 3.1 g/dL (2.2-4.2); Lipase 21 U/L (13-75); Protein, Total 7.1 g/dL (6.4-8.2)
== END 2023-10-11 08:40 | disposition home or self-care (01) ==
PROVIDERS: Emergency Provider Emergency Medicine; Visit Provider Emergency Medicine
DX: R11.2 Nausea with vomiting, unspecified (principal); R10.9 Unspecified abdominal pain; F17.290 Nicotine dependence, other tobacco product, uncomplicated; R35.0 Frequency of micturition; M54.9 Dorsalgia, unspecified
CPT/HCPCS: 74176; 80048; 80076; 81001; 83690; 85025; 96361; 96374; 96375; 99282; J7030; A4216; J2405